=== PATIENT | male | born 1945 | race Caucasian/White ===

== ENCOUNTER 2023-11-17 10:11 | Outpatient (RCR) | payer MEDICARE, BC, SELFPAY | END 2023-12-11 10:06 | disposition home or self-care (01) | LOC: ROT 10:11 | PROVIDERS: ATTENDING PHYSICIAN Orthopaedic Surgery Hand Surgery; FAMILY PHYSICIAN Internal Medicine | DX: M72.2 Plantar fascial fibromatosis (principal); Z73.6 Limitation of activities due to disability | CPT/HCPCS: 97760 ==

== ENCOUNTER → 2024-02-26 07:26 | Outpatient (REF) | payer MEDICARE, BC, SELFPAY | LOC: RAD 07:26 | PROVIDERS: ATTENDING PHYSICIAN Internal Medicine | DX: R74.01 Elevation of levels of liver transaminase levels (principal) | CPT/HCPCS: 76700 ==